=== PATIENT | female | born 1990 | race Caucasian/White ===

== ENCOUNTER 2018-05-28 15:18 | Emergency (ER) | payer OTHER ==
[~2018-05-28] VITALS: Ht 154.9 cm; Wt 56.7 kg
== END 2018-05-28 23:23 | disposition home or self-care (01) ==
LOC: ER 15:18
DX: B34.9 Viral infection, unspecified (principal)

== ENCOUNTER 2020-08-05 17:58 | Emergency (ER) | payer OTHER ==
[~2020-08-05] VITALS: Ht 154.9 cm; Wt 59.9 kg
[2020-08-05] MEDS ORDERED: DELSYM (18:45)
== END 2020-08-05 22:33 | disposition home or self-care (01) ==
LOC: ER 17:58
DX: J06.9 Acute upper respiratory infection, unspecified (principal); B96.0 Mycoplasma pneumoniae [M. pneumoniae] as the cause of diseases classified elsewhere